=== PATIENT | male | born 1960 | race Caucasian/White ===

== ENCOUNTER 2018-11-16 17:37 | Inpatient (IN) | payer OTHER ==
[~2018-11-16] VITALS: Ht 167.6 cm; Wt 62.2 kg
[2018-11-16 17:54] VITALS: Ht 167.6 cm; Wt 62.2 kg
[2018-11-16 18:41] LABS: PLATELET COUNT 319 x10^3mcL (130-400); RED CELL DISTRIBUTION WIDTH 13.6 % (11.5-14.5)
[2018-11-16 18:44] LABS: BASOPHIL % 0 % (0-2); CALCIUM 8.6 mg/dL (8.5-10.1); CARBON DIOXIDE 23.3 mmol/L (21-32); CHLORIDE SERUM 96 mmol/L (98-107); CREATININE SERUM 1.1 mg/dL (0.7-1.3); GFR1 > 60 mL/min; GLUCOSE SERUM 107 mg/dL (74-106); POTASSIUM SERUM 4.1 mmol/L (3.5-5.1); SODIUM SERUM 134 mmol/L (136-145)
[2018-11-16 18:54] LABS: ALBUMIN 2.8 g/dL (3.4-5.0); ALKALINE PHOSPHATASE 115 U/L (46-116); ALT/SGPT 57 U/L (16-63); AST/SGOT 44 U/L (15-37); BILIRUBIN TOTAL 0.5 mg/dL (0.20-1.00); TOTAL PROTEIN, SERUM 8.1 g/dL (6.4-8.2)
[2018-11-16 19:10] LABS: CK-MB < 0.5 ng/mL (0-3.6); CREATINE KINASE 42 U/L (39-308)
[2018-11-16 19:36] LABS: microscopic required? YES; urine erythrocyte 2+ (NEGATIVE)
[2018-11-16 21:29] LABS: MAGNESIUM 2.1 mg/dL (1.8-2.4); PHOSPHOROUS 2.9 mg/dL (2.5-4.9)
[2018-11-16 21:29] LABS: AMPHETAMINE QUAL UR NONE DETECTED (See below)
[2018-11-16 21:31] LABS: CHOLESTEROL/HDL RATIO 5.1
[2018-11-16 21:38] LABS: T3 TOTAL 1.05 ng/mL
[2018-11-16 21:39] LABS: FREE T4 1.33 ng/dL (0.76-1.46); FREE THYROXINE INDEX 3.3 ug/dL (1.4-4.5); T4(THYROXINE) 8.9 ug/dL (4.7-13.3)
[2018-11-16 22:00] VITALS: BP 108/77
[2018-11-17 05:33] VITALS: BP 96/62
[2018-11-17 07:10] LABS: BASOPHIL % 0.1 % (0-2); PLATELET COUNT 281 x10^3mcL (130-400); RED CELL DISTRIBUTION WIDTH 13.8 % (11.5-14.5)
[2018-11-17 07:22] LABS: CALCIUM 7.9 mg/dL (8.5-10.1); CARBON DIOXIDE 27.6 mmol/L (21-32); CHLORIDE SERUM 101 mmol/L (98-107); CREATININE SERUM 1.1 mg/dL (0.7-1.3); GFR1 > 60 mL/min; GLUCOSE SERUM 128 mg/dL (74-106); MAGNESIUM 2.2 mg/dL (1.8-2.4); POTASSIUM SERUM 4.3 mmol/L (3.5-5.1); SODIUM SERUM 134 mmol/L (136-145)
[2018-11-17 09:15] VITALS: BP 108/79
[2018-11-17] MEDS ORDERED: LEVOFLOXACIN500 M1 PO (10:46)
[2018-11-17] MEDS ORDERED: APAP/HYDROCODON1 T13 PO (10:48)
[2018-11-17 11:01] VITALS: BP 108/79
== END 2018-11-17 11:15 | disposition home or self-care (01) | DRG 720 ==
LOC: ED 17:37 → MU 20:56
PROVIDERS: Emergency Medicine; ADMIT Family Medicine
DX: A41.9 Sepsis, unspecified organism (principal); N17.0 Acute kidney failure with tubular necrosis; E43 Unspecified severe protein-calorie malnutrition; N39.0 Urinary tract infection, site not specified; B18.2 Chronic viral hepatitis C; E87.1 Hypo-osmolality and hyponatremia; R80.9 Proteinuria, unspecified; F11.21 Opioid dependence, in remission; F14.21 Cocaine dependence, in remission; Z68.22 Body mass index [BMI] 22.0-22.9, adult; Z87.891 Personal history of nicotine dependence; R91.1 Solitary pulmonary nodule
CPT/HCPCS: 83880; 84439; J0696; J1885; J3010; J7030; Q0092; Q9967

== ENCOUNTER 2019-07-16 11:08 | Emergency (ER) | payer OTHER ==
[~2019-07-16] VITALS: Ht 167.6 cm; Wt 64.1 kg
[~2019-07-16 11:08] MED LIST: APAP/HYDROCODON1 T13 PO; LEVOFLOXACIN500 M1 PO
[2019-07-16 11:32] VITALS: Ht 167.6 cm; Wt 64.1 kg
[2019-07-16 12:16] LABS: CALCIUM 8.7 mg/dL (8.5-10.1); CARBON DIOXIDE 26.3 mmol/L (21-32); CHLORIDE SERUM 104 mmol/L (98-107); CREATININE SERUM 0.9 mg/dL (0.7-1.3); GFR1 > 60 mL/min; GLUCOSE SERUM 106 mg/dL (74-106); POTASSIUM SERUM 4.7 mmol/L (3.5-5.1); SODIUM SERUM 139 mmol/L (136-145)
[2019-07-16 12:21] LABS: ALBUMIN 3.6 g/dL (3.4-5.0); ALKALINE PHOSPHATASE 134 U/L (46-116); ALT/SGPT 54 U/L (16-63); AST/SGOT 32 U/L (15-37); BILIRUBIN TOTAL 0.34 mg/dL (0.20-1.00); LIPASE 189 IU/L (73-393); TOTAL PROTEIN, SERUM 7.7 g/dL (6.4-8.2)
[2019-07-16 12:52] LABS: BASOPHIL % 0.3 % (0-2); PLATELET COUNT 257 x10^3mcL (130-400)
[2019-07-16 13:06] LABS: RED CELL DISTRIBUTION WIDTH 15.2 % (11.5-14.5)
[2019-07-16 14:35] VITALS: BP 105/65
== END 2019-07-16 14:35 | disposition home or self-care (01) ==
LOC: ED 11:08
PROVIDERS: Emergency Medicine
DX: K57.90 Diverticulosis of intestine, part unspecified, without perforation or abscess without bleeding (principal)
CPT/HCPCS: J2270; J2405; J7030

== ENCOUNTER 2019-08-01 15:38 | Emergency (ER) | payer OTHER ==
[~2019-08-01] VITALS: Ht 167.6 cm; Wt 64.9 kg
[2019-08-01 16:01] VITALS: Ht 167.6 cm; Wt 64.9 kg
[2019-08-01 19:36] VITALS: BP 121/83
== END 2019-08-01 20:30 | disposition left against medical advice (07) ==
LOC: ED 15:38
DX: T15.12XA Foreign body in conjunctival sac, left eye, initial encounter (principal); X58.XXXA Exposure to other specified factors, initial encounter; Y93.89 Activity, other specified; Y92.89 Other specified places as the place of occurrence of the external cause; Y99.8 Other external cause status
CPT/HCPCS: 90715; J1885

== ENCOUNTER 2020-04-04 20:07 | Emergency (ER) | payer OTHER ==
[~2020-04-04] VITALS: Ht 167.6 cm; Wt 74.8 kg
[2020-04-04 20:11] VITALS: Ht 167.6 cm; Wt 74.8 kg
[2020-04-04 21:03] LABS: BASOPHIL % 0.2 % (0-2); PLATELET COUNT 248 x10^3mcL (130-400); RED CELL DISTRIBUTION WIDTH 13.5 % (11.5-14.5)
[2020-04-04 21:18] LABS: CALCIUM 8.5 mg/dL (8.5-10.1); CARBON DIOXIDE 27.1 mmol/L (21-32); CHLORIDE SERUM 105 mmol/L (98-107); GFR1 > 60 mL/min; GLUCOSE SERUM 127 mg/dL (74-106); POTASSIUM SERUM 4.1 mmol/L (3.5-5.1); SODIUM SERUM 140 mmol/L (136-145)
[2020-04-04 21:22] LABS: ALBUMIN 3.5 g/dL (3.4-5.0); ALKALINE PHOSPHATASE 116 U/L (46-116); ALT/SGPT 49 U/L (16-63); AST/SGOT 32 U/L (15-37); BILIRUBIN TOTAL 0.2 mg/dL (0.20-1.00); HDL CHOLESTEROL 36 mg/dL (40-60); LIPASE 186 IU/L (73-393); TOTAL PROTEIN, SERUM 7.2 g/dL (6.4-8.2); TRIGLYCERIDES 72 mg/dL (<150)
[2020-04-04 21:24] LABS: CHOLESTEROL 98 mg/dL (<200); CHOLESTEROL/HDL RATIO 2.7
[2020-04-04 21:30] LABS: T3 TOTAL 1.7 ng/mL
[2020-04-04 21:35] LABS: FREE T4 0.97 ng/dL (0.76-1.46); FREE THYROXINE INDEX 2.4 ug/dL (1.4-4.5)
[2020-04-04 21:55] LABS: microscopic required? NO
[2020-04-04 22:01] LABS: UA SPECIFIC GRAVITY 1.025 (1.005-1.035); urine erythrocyte NEGATIVE (NEGATIVE)
[2020-04-04 22:15] LABS: AMPHETAMINE QUAL UR POSITIVE (See below)
[2020-04-04 23:09] VITALS: BP 111/77
== END 2020-04-04 23:09 | disposition left against medical advice (07) ==
LOC: ED 20:07
PROVIDERS: Specialist
DX: K56.600 Partial intestinal obstruction, unspecified as to cause (principal); F19.10 Other psychoactive substance abuse, uncomplicated; C00-D49 Neoplasms; Z86.19 Personal history of other infectious and parasitic diseases
CPT/HCPCS: 83880; 84439; G0480; J2270; J2405; J7030; Q0092

== ENCOUNTER 2020-04-20 16:37 | Emergency (ER) | payer OTHER ==
[~2020-04-20] VITALS: Ht 167.6 cm; Wt 68.0 kg
[2020-04-20 16:44] VITALS: Ht 167.6 cm; Wt 68.0 kg
[2020-04-20 19:32] VITALS: BP 123/70
== END 2020-04-20 19:32 | disposition home or self-care (01) ==
LOC: ED 16:37
DX: S01.81XA Laceration without foreign body of other part of head, initial encounter (principal); S46.911A Strain of unspecified muscle, fascia and tendon at shoulder and upper arm level, right arm, initial encounter; S16.1XXA Strain of muscle, fascia and tendon at neck level, initial encounter; S20.212A Contusion of left front wall of thorax, initial encounter; F17.210 Nicotine dependence, cigarettes, uncomplicated; Z71.6 Tobacco abuse counseling; Z85.068 Personal history of other malignant neoplasm of small intestine; V43.52XA Car driver injured in collision with other type car in traffic accident, initial encounter; W22.11XA Striking against or struck by driver side automobile airbag, initial encounter; Y93.I9 Activity, other involving external motion; Y92.413 State road as the place of occurrence of the external cause; Y99.8 Other external cause status
CPT/HCPCS: 99406